=== PATIENT | male | born 1945 | race African-American/Black ===

== ENCOUNTER 2016-08-30 09:08 | Observation (INO) | payer OTHER ==
[2016-08-30] MEDS ORDERED: NS 1,000 ML IV ONE (09:13)
[2016-08-30] MEDS ORDERED: DIAZEPAM 5 MG TAB PO ONE (09:13)
[2016-08-30] MEDS ORDERED: diphenhydrAMINE 25 MG CAP PO ONE ×2 (09:13→09:26)
[2016-08-30] MEDS ORDERED: ASPIRIN EC 325 MG TAB PO ONE ×2 (09:13→09:26)
[2016-08-30] MEDS ORDERED: FAMOTIDINE 20 MG TAB PO ONE (09:13)
[2016-08-30] MEDS ORDERED: DIAZEPAM 5 MG TAB ONE (09:26)
[2016-08-30] MEDS ORDERED: FAMOTIDINE 20 MG TAB ONE (09:26)
--- NOTE | 2016-08-30 09:36 | CPEKG ---
Heart Rate: 55 RR Interval: 1091 P-R Interval: 200 QRSD Interval: 94 QT Interval: 452 QTC Interval: 433 P [place]: 44 QRS [place]: -20 T Wave [place]: -17 EKG Severity - BORDERLINE ECG - EKG Impression: SINUS RHYTHM EKG Impression: BORDERLINE LEFT AXIS DEVIATION EKG Impression: BORDERLINE T ABNORMALITIES, INFERIOR LEADS Electronically Signed By: Christiano Santana 30-Aug-2016 15:34:42
[2016-08-30 09:52] LABS: % IMMATURE GRANULYOCYTES 0.4 % (0.0-1.1); ABSOLUTE IMMATURE GRANULOCYTES 0.02 10^3/uL (0.00-0.10); ADD DIFF? NO; ADD MORPH? NO; ADD SCAN? NO; ATYPICAL LYMPHOCYTE FLAG 10 (0-99); FRAGMENT RBC FLAG 0 (0-99); HEMATOCRIT 42.9 % (40.0-51.0); LEFT SHIFT FLG 0 (0-99); LIPEMIA HEMOLYSIS FLAG 80 (0-99); MEAN CELL HEMOGLOBIN 26.5 pg (27.9-34.1); MEAN CELL HEMOGLOBIN CONCENTR. 32.6 g/dL (32.4-36.7); MEAN CELL VOLUME 81.1 fL (81.5-99.8); MEAN PLATELET VOLUME 10.7 fL (8.7-11.7); PLATELET CLUMPS FLAG 0 (0-99); PLATELET COUNT 221 10^3/uL (150-400); RED BLOOD CELL COUNT 5.29 10^6/uL (4.40-6.38); RED CELL DISTRIBUTION WIDTH 14.8 % (11.5-15.2)
[2016-08-30 10:04] LABS: INR 0.95 (0.83-1.16); PROTIME(PATIENT) 12.6 SEC (12.0-15.0)
[2016-08-30 10:08] LABS: ANION GAP 11 mEq/L (8-16); CALCIUM 9.8 mg/dL (8.5-10.4); CARBON DIOXIDE 24 mEq/l (22-31); CHLORIDE 104 mEq/L (97-110); CHOLESTEROL 151 mg/dL (140-220); CHOLESTEROL/HDL RATIO 3.28 RATIO (1.00-4.97); CREATININE 1.1 mg/dL (0.7-1.3); GLOMERULAR FILTRATION RATE > 60; GLUCOSE 139 mg/dL (70-100); HIGH DENSITY LIPOPROTEIN 46 mg/dL (40-65); LDL/HDL RATIO 1.61 RATIO (1.00-3.64); LOW DENSITY LIPOPROTEIN 74 mg/dL (80-100); MAGNESIUM 1.9 mg/dL (1.6-2.3); NON-HIGH DENSITY LIPOPROTEIN 105 mg/dL (90-129); SODIUM 139 mEq/L (134-144); TRIGLYCERIDE 156 mg/dL (40-150); VERY LOW DENSITY LIPOPROTEINS 31 mg/dL (8-25)
[2016-08-30] MEDS ORDERED: LIDOCAINE 1% 30 ML SDV ONE (11:47)
[2016-08-30] MEDS ORDERED: MIDAZOLAM 2 MG/2 ML VIAL ONE ×2 (11:47→12:38)
[2016-08-30] MEDS ORDERED: VERAPAMIL 5 MG/2 ML VIAL ONE (11:47)
[2016-08-30] MEDS ORDERED: HEPARIN 10,000 UNIT/10 ML MDV ONE (11:47)
[2016-08-30] MEDS ORDERED: fentaNYL 100 MCG/2 ML INJ ONE ×2 (11:47→12:37)
[2016-08-30] MEDS ORDERED: IOPAMIDOL (ISOVUE-370) 150 ML BTL IV ONE ×2 (11:48→12:34)
[2016-08-30] MEDS ORDERED: NITROGLYCERIN 1,500 MCG/15 ML VIAL MISC ONE (13:19)
[2016-08-30] MEDS ORDERED: CLOPIDOGREL BISULFATE 75 MG TAB ONE ×2 (13:22→13:23)
[2016-08-30] MEDS ORDERED: ONDANSETRON 4 MG/2 ML VIAL IVP PRN (13:30)
[2016-08-30] MEDS ORDERED: ATROPINE SULFATE 1 MG/10 ML SYR IVP PRN (13:30)
[2016-08-30] MEDS ORDERED: TEMAZEPAM 15 MG CAP PO PRN (13:30)
[2016-08-30] MEDS ORDERED: NITROGLYCERIN 0.4 MG BTL SL PRN (13:30)
[2016-08-30] MEDS ORDERED: CLOPIDOGREL BISULFATE 75 MG TAB PO ONE (13:30)
[2016-08-30] MEDS ORDERED: NS 1,000 ML IV SCH (13:30)
[2016-08-30] MEDS ORDERED: HYDROCODONE/APAP 5/325 TAB PO PRN (13:30)
[2016-08-30] MEDS ORDERED: OXYCODONE/APAP 5/325 TAB PO PRN (13:30)
[2016-08-30] MEDS ORDERED: LORazepam 2 MG/ML INJ IVP PRN (13:30)
--- NOTE | 2016-08-30 13:41 | PDDXCAT ---
Diagnostic Cath Note - . Date: 08/30/16 Enroller: Max Indication: other (VT, afib) High-risk criteria on non-invasive testing: stress-induced moderate-size multiple perfusion defects - Procedure Access: right wrist Procedure: left heart catheterization, coronary angiography, left ventriculogram - Materials Left Heart Cath size: 5F Left Heart Cath materials: pigtail, other (SiteSeer) - Findings-Left Heart Catheterization LM: Unobstructed LAD: mild nonobstructive atheromatous. LCX: Dominant: 90% 1st OM stenosis. Diffuse nonobstructive atheromatous following AV groove portion RCA: non dominant: Diffusely diseased 70% EDP: 15 mm of mercury LVEF: 70% Wall motion: none Complications: none Estimated blood loss: <50ml Closure method: other (TR band and Angio-Seal) Assessment: Diffuse atherosclerotic cardiovascular disease with 90% stenosis of a principal obtuse marginal branch. Nonsustained ventricular tachycardia with sustained atrial flutter /fibrillation. Normal left ventricular systolic function Plan: PCI of the obtuse marginal branch. Aggressive secondary prevention goal LDL cholesterol less than 70 mg/dL addition of Alvarez inhibitor. Intervention: After reviewing diagnostic angiograms it was elected to proceed with ad Hoc PCI of the principal obtuse marginal branch. Initial attempts were made from the right radial artery up sizing to a 6 Kenyan sheath. A 6 Kenyan 3.5 Q guide was able to selectively intubate the left main coronary well. The stenosis was crossed using a 0.014 Samarai wire. Primary stenting was attempted using a 2.5 by 16 mm synergy stent after performing Q CA. The stent would not cross. Attempts at using a GuideLiner were made but the stent would not cross. Attempts at using a 0.014 mailman wire in conjunction with the Samurai were made but also this stent would not cross. The wires were removed. Attempts at up sizing to a 3.75 Q guide were made but due to tortuosity of the axillary artery the guide would not pass. At this point was elected to proceed with right groin access. A 7 Kenyan sheath was inserted in the right femoral artery. A 7 Kenyan Q 3.5 guide was used to intubate the left main coronary artery. A 0.014 luge wire was used to cross the obtuse marginal stenosis. Pre dilatation of the stenosis were post performed using a 2.5 compliant balloon. Repeat angiogram showed ALEXEI grade 3 flow. The 2.5 x 16 mm synergy stent was then placed across the lesion. It was deployed using a single inflation. The patient was administered intracoronary nitroglycerin. Orthogonal angiogram showed ALEXEI grade 3 flow with step-up and step-down. The wire was withdrawn. The right groin was closed using Angio-Seal. The patient is taken to recovery for continued care. Therapeutic ACT was confirmed during the study with administration of IV heparin. He tolerated the procedure well. conclusions: Critical obtuse marginal stenosis status post successful PCI and stenting. Normal left ventricular systolic function. Nonsustained salvos of ventricular tachycardia. Sustained atrial flutter/fibrillation. Recommendations: Aggressive secondary prevention. Will continue beta-sara. Will put pursue dual antiplatelet therapy with aspirin and Plavix for 30 days and then transition him to Plavix plus NOAC. Will review lipid management and should for high-dose statin therapy with 80 mg of Lipitor. Will begin low-dose ARB. Repeat monitoring. Cardiac rehabilitation. Patient Problems: Problems Problem Status Onset Acute coronary syndrome Acute
[2016-08-30] MEDS ORDERED: DUTASTERIDE 0.5 MG CAP PO SCH ×2 (21:00)
[2016-08-30] MEDS ORDERED: TAMSULOSIN HCL 0.4 MG CAP PO SCH (21:00)
[2016-08-30] MEDS ORDERED: INSULIN GLARGINE 100 UNITS/ML SYRINGE SC SCH (21:00)
[2016-08-31 03:53] LABS: % IMMATURE GRANULYOCYTES 0.2 % (0.0-1.1); ABSOLUTE IMMATURE GRANULOCYTES 0.01 10^3/uL (0.00-0.10); ADD DIFF? NO; ADD MORPH? NO; ADD SCAN? NO; ATYPICAL LYMPHOCYTE FLAG 0 (0-99); FRAGMENT RBC FLAG 0 (0-99); HEMATOCRIT 35.4 % (40.0-51.0); HEMOGLOBIN 11.6 g/dL (13.7-17.5); LEFT SHIFT FLG 0 (0-99); LIPEMIA HEMOLYSIS FLAG 80 (0-99); MEAN CELL HEMOGLOBIN 26.4 pg (27.9-34.1); MEAN CELL HEMOGLOBIN CONCENTR. 32.8 g/dL (32.4-36.7); MEAN CELL VOLUME 80.6 fL (81.5-99.8); PLATELET CLUMPS FLAG 0 (0-99); PLATELET COUNT 159 10^3/uL (150-400); RED BLOOD CELL COUNT 4.39 10^6/uL (4.40-6.38); RED CELL DISTRIBUTION WIDTH 14.6 % (11.5-15.2)
[2016-08-31 04:10] LABS: ALBUMIN 2.8 g/dL (3.5-5.0); ANION GAP 6 mEq/L (8-16); ASPARTATE AMINOTRANSFERASE 18 IU/L (17-59); BILIRUBIN,TOTAL 0.7 mg/dL (0.1-1.4); CARBON DIOXIDE 21 mEq/l (22-31); CHLORIDE 111 mEq/L (97-110); CREATININE 0.9 mg/dL (0.7-1.3); GLOMERULAR FILTRATION RATE > 60; GLUCOSE 126 mg/dL (70-100); LACTATE DEHYDROGENASE 307 IU/L (313-618); MAGNESIUM 1.7 mg/dL (1.6-2.3); POTASSIUM 3.4 mEq/L (3.5-5.2); SODIUM 138 mEq/L (134-144)
[2016-08-31 07:28] VITALS: BP 141/82; PULSE 67; RESP 16; TEMP 97.5; O2SAT 96
[2016-08-31] MEDS ORDERED: LOSARTAN POTASSIUM 25 MG TAB PO SCH (09:00)
[2016-08-31] MEDS ORDERED: CLOPIDOGREL BISULFATE 75 MG TAB PO SCH (09:00)
[2016-08-31] MEDS ORDERED: ASPIRIN EC 325 MG TAB PO SCH (09:00)
[2016-08-31] MEDS ORDERED: CARVEDILOL 25 MG TAB PO SCH (09:00)
[2016-08-31] MEDS ORDERED: EZETIMIBE 10 MG TAB PO SCH (09:00)
--- NOTE | 2016-08-31 09:22 | CPEKG ---
Heart Rate: 59 RR Interval: 1017 P-R Interval: 180 QRSD Interval: 86 QT Interval: 388 QTC Interval: 385 P Mer[place]: 53 QRS [place]cer: -25 T Wave Mer[place]: 6 EKG Severity - ABNORMAL ECG - EKG Impression: SINUS RHYTHM EKG Impression: PAIRED VENTRICULAR PREMATURE COMPLEXES EKG Impression: BORDERLINE LEFT AXIS DEVIATION EKG Impression: BORDERLINE T ABNORMALITIES, ANT-LAT LEADS Electronically Signed By: Christiano Santana 31-Aug-2016 14:36:16
--- NOTE | 2016-08-31 09:31 | PDDCSUM ---
Discharge Summary Discharge Summary: Admission date: 08/30/2016. Discharge date: 08/31/2016. Admission diagnosis: Abnormal nuclear stress test with nonsustained ventricular tachycardia, sustained atrial fibrillation /flutter. Discharge diagnosis: Coronary artery disease status post PCI of the obtuse marginal branch from the circumflex artery. History of nonsustained ventricular tachycardia, history of atrial fibrillation /flutter, diabetes, elevation in LDH of uncertain etiology, hyperlipidemia, hypertension. Procedures during this hospitalization left heart catheterization coronary in ventricular angiography PCI and stenting of the obtuse marginal branch from the right radial artery and right femoral artery. Hospital course: Mr. kimble is a 70-year-old male admitted to the hospital with nonsustained ventricular tachycardia and atrial dysrhythmias. He was found to have flow limiting critical coronary artery disease of a large obtuse marginal branch off the circumflex artery. He underwent complex PCI due to significant tortuosity from the radial artery. He had a successful stent implantation in the obtuse marginal branch. He was observed overnight without complications. Today's blood pressure is 130/70. Heart rate is 62. His chest is clear. Cardiac exam was regular rate and rhythm. His puncture sites are healing well without significant erythema, ecchymosis. Laboratory today showed stable creatinine. His LDH is slightly elevated. His potassium is slightly decreased, however, he is beginning an ARB today. Recommendations are for discharge from the hospital with dual antiplatelet therapy both for stroke prevention with his history of atrial fibrillation and for recent stent implantation. His LDL cholesterol is 71 mg/dL on good statin therapy. Will add an ARB in the setting of diabetes. Outpatient follow-up with repeat assessment of his SMA 7 and LDH in 1 week. Questions were answered with him and his . He will be referred to cardiac rehabilitation. Follow-up 7-10 days.
--- NOTE | 2016-09-05 11:06 | CPEKG ---
Heart Rate: 53 RR Interval: 1132 P-R Interval: 196 QRSD Interval: 90 QT Interval: 448 QTC Interval: 421 P Maxie: 50 QRS Maxie: -26 T Wave Maxie: -42 EKG Severity - ABNORMAL ECG - EKG Impression: SINUS RHYTHM EKG Impression: BORDERLINE LEFT AXIS DEVIATION EKG Impression: NONSPECIFIC T ABNORMALITIES, INFERIOR LEADS Preliminary Awaiting MD Review
== END 2016-08-31 10:34 | disposition home or self-care (01) ==
LOC: FCATH 09:08 → F2W 13:25
PROVIDERS: ADMIT Internal Medicine Interventional Cardiology; ATTEND Internal Medicine Interventional Cardiology
PROC: 4A023N7 Measurement of Cardiac Sampling and Pressure, Left Heart, Percutaneous Approach (ICD-10-PCS; principal; 2016-08-30)
PROC: B2111ZZ Fluoroscopy of Multiple Coronary Arteries using Low Osmolar Contrast (ICD-10-PCS; principal; 2016-08-30)
PROC: B2151ZZ Fluoroscopy of Left Heart using Low Osmolar Contrast (ICD-10-PCS; principal; 2016-08-30)
PROC: 027034Z Dilation of Coronary Artery, One Artery with Drug-eluting Intraluminal Device, Percutaneous Approach (ICD-10-PCS; principal; 2016-08-30)
DX: I25.10 Atherosclerotic heart disease of native coronary artery without angina pectoris (principal); I47.2 Ventricular tachycardia; E11.9 Type 2 diabetes mellitus without complications; E78.5 Hyperlipidemia, unspecified; I10 Essential (primary) hypertension
CPT/HCPCS: 93005; 93458; C1725; C1769; C1874; C1887; C9600; J1644; J1815; J2250; J3010; Q9967

== ENCOUNTER → 2016-10-23 | Outpatient (CLI) | payer OTHER ==
[~2016-10-23] MED LIST: IOPAMIDOL (ISOVUE-300) 100 ML BTL IV ONE
== END ==
LOC: FIMAGING 18:01
PROVIDERS: ATTEND Internal Medicine
DX: N32.9 Bladder disorder, unspecified (principal); I25.10 Atherosclerotic heart disease of native coronary artery without angina pectoris; I70.293 Other atherosclerosis of native arteries of extremities, bilateral legs; E11.9 Type 2 diabetes mellitus without complications; E78.5 Hyperlipidemia, unspecified; Z12.5 Encounter for screening for malignant neoplasm of prostate; Z13.29 Encounter for screening for other suspected endocrine disorder; Z79.899 Other long term (current) drug therapy
CPT/HCPCS: 74177; Q9967; G0103

== ENCOUNTER → 2018-09-24 | Outpatient (CLI) | payer OTHER ==
[~2018-09-24] MED LIST changes: +GADOBUTROL 10 ML VIAL IVP ONE; -IOPAMIDOL (ISOVUE-300) 100 ML BTL IV ONE
== END ==
LOC: FIMAGING 06:28
PROVIDERS: ATTEND Specialist
DX: R97.20 Elevated prostate specific antigen [PSA] (principal); Z85.46 Personal history of malignant neoplasm of prostate
CPT/HCPCS: 72197; 76377; A9585; 82565-PO